=== PATIENT | female | born 1950 | race Caucasian/White ===

== ENCOUNTER 2024-05-28 11:35 | Emergency (ER) | payer MEDICARE, OTHER, SELFPAY ==
[2024-05-28 11:43] VITALS: BP 135/77
--- NOTE | 2024-05-28 11:46 | ED.GENMED ---
ED Provider Triage
<Omar West PA-C - Last Filed: 05/28/24 11:48>
-
Patient seen by provider in Triage?: Seen in Triage
73-year-old female presents with shortness of breath worse with exertion worsening over the past week. She follows with a fruit or nut farmworker through [place] secondary to episode of atrial fibrillation she had after spine surgery earlier this week. She
is not anticoagulated. She denies chest pain. Patient does take amiodarone and carvedilol
EKG performed through triage. Will check labs and x-ray of chest. Not hypoxic or tachycardic at triage
History of Present Illness
<Omar West PA-C - Last Filed: 05/28/24 11:48>
General
Chief Complaint: Breathing Problem
Time Seen by Provider: 05/28/24 14:08
<DO Sonia Mcclure Last Filed: 05/28/24 18:57>
History of Present Illness
History of Present Illness:
73-year-old female history of scoliosis requiring spinal surgery, history of A-fib, currently off cardiac medications presenting for difficulty breathing. Patient reports for the past 5 days she has had exertional dyspnea. Denies any lower
extremity edema. Denies associated chest pain. Symptoms worsened 2 days ago. Denies known history of CHF. Denies known history of PE, reports about a 6-hour prolonged car ride a few weeks ago. She called her fruit or nut farmworker, recommended to come to
the hospital for a BNP and a CT of her chest. Denies cough or fever. Denies additional acute medical complaints.
Phy Exam
<DO Sonia Mcclure Last Filed: 05/28/24 18:57>
Physical Exam
Physical Exam:
General: Well-appearing, no clinical signs of dehydration, nontoxic and in no acute distress
HEENT: protecting airway
Neck: appears supple
CV: Normal heart rate, regular rhythm
Resp: No accessory muscle use, no increased work of breathing, lungs clear to auscultation bilaterally
Abd: Soft and non-distended, no tenderness to palpation, normal bowel sounds
Extremities: No deformities, no swelling, no erythema. No tenderness to palpation to the lower extremities
Neuro: alert, no focal neurologic deficit
: deferred
Rectal: deferred
Psych: Normal affect
Skin: Intact
Scores
<Julia Alvarado DO - Last Filed: 05/28/24 18:57>
Heart Failure Risk
Heart Failure Risk Score: Yes
History of Stroke or TIA: No
History of intubation for respiratory distress: No
Heart rate on ED arrival >/= 110: No
SaO2 <90% on arrival on room air: No
HR >/=110 during 3min walk test (or too ill to perform test): No
ECG has acute ischemic changes: No
Urea >/=12mmol/L (BUN 33.6mg/dL): No
Serum CO2>/=35mmol/L: No
Troponin I or T elevated to [place] Level (0.4mg/dL): No
NT-proBNP >/=5,000ng/L (5,000pg/ml): No
HF Risk Score: 0
Admission Status: LOW RISK 2.8% Consider discharge to home with f/u visit to PCP/[employer]
Course
<Omar West PA-C - Last Filed: 05/28/24 11:48>
Orders/Labs/Results
Orders:
Orders
05/28/24 11:36
Electrocardiogram (*1) Urgent
Reason for Study: Shortness of Breath
EKG- Treatment ONCE
05/28/24 11:43
CR Chest - 2 Views Urgent
Comment:
Reason For Exam: sob
05/28/24 14:27
Complete Blood Count/With Diff Urgent
Comprehensive Metabolic Panel Urgent
NT-proBNP Urgent
Troponin I Urgent
05/28/24 14:42
CT Chest Pe Study Urgent
Comment:
Reason For Exam: sob with exertion, r/o PE
Abnormal Lab Results
05/28/24
14:27
RBC 4.13 L 10^6/uL
(4.20-5.40)
Hct 36.3 L %
(37.0-47.0)
MPV 10.5 H fL
(7.4-10.4)
Absolute Monos (auto) 0.7 H 10^3/uL
(0.1-0.6)
BUN 27 H mg/dl
(7-17)
Glucose 104 H mg/dl
(70-99)
AST 38 H U/L
(14-36)
ALT 36 H U/L
(0-35)
05/28/24 14:27
05/28/24 14:27
Vital Signs
Initial and Last Documented VS:
Initial Vital Signs
Temp Pulse Resp BP Pulse Ox
98.0 F 91 18 135/77 100
05/28/24 11:43 05/28/24 11:43 05/28/24 11:43 05/28/24 11:43 05/28/24 11:43
Last Documented Vital Signs
Temp Pulse Resp BP Pulse Ox
98.0 F 64 17 135/77 100
05/28/24 11:43 05/28/24 17:45 05/28/24 17:45 05/28/24 11:43 05/28/24 11:43
<Julia Alvarado, DO - Last Filed: 05/28/24 18:57>
Orders/Labs/Results
Orders:
Orders
05/28/24 11:36
Electrocardiogram (*1) Urgent
Reason for Study: Shortness of Breath
EKG- Treatment ONCE
05/28/24 11:43
CR Chest - 2 Views Urgent
Comment:
Reason For Exam: sob
05/28/24 14:27
Complete Blood Count/With Diff Urgent
Comprehensive Metabolic Panel Urgent
NT-proBNP Urgent
Troponin I Urgent
05/28/24 14:42
CT Chest Pe Study Urgent
Comment:
Reason For Exam: sob with exertion, r/o PE
Abnormal Lab Results
05/28/24
14:27
RBC 4.13 L 10^6/uL
(4.20-5.40)
Hct 36.3 L %
(37.0-47.0)
MPV 10.5 H fL
(7.4-10.4)
Absolute Monos (auto) 0.7 H 10^3/uL
(0.1-0.6)
BUN 27 H mg/dl
(7-17)
Glucose 104 H mg/dl
(70-99)
AST 38 H U/L
(14-36)
ALT 36 H U/L
(0-35)
05/28/24 14:27
05/28/24 14:27
Vital Signs
Initial and Last Documented VS:
Initial Vital Signs
Temp Pulse Resp BP Pulse Ox
98.0 F 91 18 135/77 100
05/28/24 11:43 05/28/24 11:43 05/28/24 11:43 05/28/24 11:43 05/28/24 11:43
Last Documented Vital Signs
Temp Pulse Resp BP Pulse Ox
98.0 F 64 17 135/77 100
05/28/24 11:43 05/28/24 17:45 05/28/24 17:45 05/28/24 11:43 05/28/24 11:43
<Julia Alvarado DO - Last Filed: 05/28/24 18:57>
MDM/Problems Addressed
Differential Diagnosis Includes:
73-year-old female presenting for exertional dyspnea. Vital signs are normal.
On exam patient is well-appearing, no acute distress or discomfort. Unremarkable cardiac and pulmonary exam. No lower extremity edema. EKG obtained, no STEMI criteria. Patient without chest pain, lower suspicion for ACS. Lower suspicion for
CHF, no rhonchi or rales, no lower extremity edema. PE is a consideration, given unclear source of exertional dyspnea, recent prolonged car ride. Plan for laboratory analysis and CT imaging of the chest.
18:10 -delay in disposition secondary to delay in obtaining CT secondary to patient volume. CT without evidence of PE. There are incidental pulmonary nodules. Did discuss with patient's fruit or nut farmworker, discussed results. He notes that her BNP has
increased within the past several weeks, recommending that we start her on Lasix MWF, 20 mg. He will follow-up with patient regarding symptom improvement and repeat BMP. Patient otherwise remains hemodynamically stable. Feel stable for discharge.
Return precautions discussed and patient verbalized understanding
<Julia Alvarado DO - Last Filed: 05/28/24 18:57>
*EKG
Interpreted by ED Provider?: Yes
EKG Intrepretation Date: 05/28/24
EKG Intrepretation Time: 15:07
Interpretation: normal
Comparison EKG: no comparison EKG present
Heart Rate: 81
Rate: normal
Rhythm: sinus
[place]: normal axis
Interval: normal interval
QRS Pattern: normal QRS
Ischemia: T-wave inversion (V1-V2)
*Critical Care Note
Total Time (30-74mins, 75-104mins- exclusive of procedures): Not Applicable
ED Attending Note
<Omar West PA-C - Last Filed: 05/28/24 11:48>
-
Portions of this chart may have been created with voice recognition software.� Occasional wrong word or��sound alike� substitutions may have occurred due to the inherent limitations of voice recognition software.
Discharge Plan
Departure
Patient Disposition: Home (Routine Discharge)
Date of Disposition: 05/28/24
Time of Disposition: 18:17
Patient with high blood pressure during this ER visit?: No
Condition: Good
Discharge Problem:
Dyspnea on exertion
Instructions: Shortness of Breath (Dyspnea) (DC)
Prescriptions:
New
furosemide [Lasix] 20 mg tablet
20 mg PO .MWF 30 Days Qty: 20 0RF
Referrals:
Cari Kramer MD [Family Provider] -
Activity Restrictions/Additional Instructions:
You were seen in the emergency department for shortness of breath
You were found to have normal laboratory analysis with the exception of slight increase of your BNP. You had a CT of your chest, that did not show any evidence of a blood clot. In discussion with your fruit or nut farmworker, you are being started on Lasix.
Please follow-up closely with your fruit or nut farmworker
Please follow-up closely with your primary care physician.
Return to the emergency department for any worsening of your symptoms, or any development of chest pain, difficulty breathing, abdominal pain with persistent vomiting and inability to tolerate food or liquid by mouth (concern for dehydration),
weakness, headache or confusion, fever greater than 100.4, or any additional symptoms that are concerning to you.
Thank you for choosing [facility].
Interventions
Interventions:
*Risk Screen - Suicide Last Done: 05/28/24 11:43
*General Assessment Last Done: 05/28/24 11:43
*Neglect/Abuse Screening Last Done: 05/28/24 11:43
ED- Fall Risk Assessment Last Done: 05/28/24 18:29
*ED COVID-19 Vaccine History Last Done: 05/28/24 11:43
*Nursing Disposition Last Done: 05/28/24 18:29
ED- Cardiac Assessment Last Done: 05/28/24 15:09
ED- Pulmonary Assessment Last Done: 05/28/24 15:09
Discharge Date and Time
Discharge Date/Time: 05/28/24 18:29
Print Language: PALAUAN
[2024-05-28 14:39] LABS: % Basophils 0.5 % (0-2); % Eosinophils 0.6 % (0-6); % Immature Granulocytes 0.2 % (0-0.5); % Lymphocytes 27.3 % (20.5-51.1); % Monocytes 8.4 % (1.7-9.3); Absolute Eosinophils 0.1 10^3/uL (0-0.7); Absolute Lymphocytes 2.2 10^3/uL (1.2-3.4); Absolute Monocytes 0.7 10^3/uL (0.1-0.6); Absolute Neutrophils 5.1 10^3/uL (1.4-6.5); Hematocrit 36.3 % (37.0-47.0); Hemoglobin 12.1 g/dL (12.0-16.0); Mean Corp Hgb Conc. 33.3 g/dL (33.0-37.0); Mean Corpuscular Hgb 29.3 pg (27.0-31.0); Mean Corpuscular Volume 87.9 fL (81.0-99.0); Mean Platelet Volume 10.5 fL (7.4-10.4); Nucleated Red Blood Cells % 0 %; Platelet Count 221 10^3/uL (130-400); Red Blood Cell Count 4.13 10^6/uL (4.20-5.40); Red Cell Dist. Width 13.8 % (11.5-14.5); White Blood Cell Count 8.2 10^3/uL (4.8-10.8)
[2024-05-28 14:56] LABS: ALT (SGPT) 36 U/L (0-35); AST (SGOT) 38 U/L (14-36); Albumin 4.3 g/dl (3.5-5.0); Alkaline Phosphatase 90 U/L (38-126); Blood Urea Nitrogen 27 mg/dl (7-17); Calcium 9.3 mg/dl (8.4-10.2); Carbon Dioxide 25 mmol/L (22-30); Chloride 102 mmol/L (98-107); Glucose 104 mg/dl (70-99); Potassium 4.2 mmol/L (3.5-5.1); Sodium 139 mmol/L (135-145); Total Bilirubin 1.1 mg/dl (0.2-1.3); Total Protein 6.7 g/dl (6.3-8.2); eGFR > 60.00
[2024-05-28 15:00] LABS: NT-proBNP 586 pg/ml; Troponin I < 0.012 ng/ml
== END 2024-05-28 18:29 | disposition home or self-care (01) ==
LOC: EMR 11:35
PROVIDERS: Physician Assistant; EMERGENCY PHYSICIAN Student in an Organized Health Care Education/Training Program; FAMILY PHYSICIAN Family Medicine
DX: R06.09 Other forms of dyspnea (principal); M41.9 Scoliosis, unspecified; I48.91 Unspecified atrial fibrillation
CPT/HCPCS: 99284; 71046; 71275; 80053; 83880; 84484; 85025; 93005; Q9967